=== PATIENT | male | born 1945 | race Two or more races ===

== ENCOUNTER → 2017-07-25 | Day surgery (SDC) | payer BC, MEDICARE ==
[~2017-07-25] VITALS: Ht 180.3 cm; Wt 90.7 kg
[~2017-07-25] MED LIST: ASPI325T4 PO; ATOR40TA52 PO; CARB100C3 PO; DULO1CAP2 PO; FLUMAZENIL 0.1 MG/ML INJ 10ML MDV IV ONE; LIDOCAINE VISCOUS 2% 15ML UD MT ONE; LISI10TA6 PO; MIDAZOLAM HCL 1MG/1ML-2 ML VIAL IV ONE; MULT-928 PO; NALOXONE HCL 0.4 MG/ML VIAL IV ONE; fentaNYL CITRATE 100 MCG/2 ML VL IV ONE
== END | disposition home or self-care (01) ==
LOC: CATH 06:38
PROVIDERS: ATTEND Specialist
DX: I35.1 Nonrheumatic aortic (valve) insufficiency (principal); I34.0 Nonrheumatic mitral (valve) insufficiency; I10 Essential (primary) hypertension; I37.1 Nonrheumatic pulmonary valve insufficiency
CPT/HCPCS: 93312; J2250; J3010; J7030; 99152; 99153